=== PATIENT | male | born 1955 | race Caucasian/White ===

== ENCOUNTER 2020-09-27 12:53 | Inpatient (IN) | payer OTHER ==
[~2020-09-27] VITALS: Ht 185.4 cm; Wt 89.6 kg
[~2020-09-27 12:53] MED LIST: ASPI81CH43 GT; HCTZ; [UNRECOGNIZED DRUG - CODE] OR
[2020-09-27] MEDS ORDERED: SODIUM CHLORIDE 0.9% 1,000 ML IV ONE (13:15)
[2020-09-27] MEDS ORDERED: PANTOPRAZOLE 40 MG/10 ML VIAL INJ IV ONE (13:30)
[2020-09-27] MEDS ORDERED: OCTREOTIDE ACETATE 100 MCG in SODIUM CHL 0.9% 50 ML IV ONE (13:45)
[2020-09-27] MEDS ORDERED: PANTOPRAZOLE 40mg/50ML NS AE 50 ML IV ONE (13:45)
[2020-09-27 14:03] LABS: Basophils # (auto) 0 10 ^3/uL (0-0.2); Basophils % (auto) 0.6 % (0.0-2.0); Eosinophils # (auto) 0 10 ^3/uL (0-0.8); Eosinophils % (auto) 0.4 % (0.0-7.0); Hematocrit 29.2 % (41.0-53.0); Hemoglobin 9.9 g/dL (13.5-17.5); Lymphocytes # (auto) 1.3 10 ^3/uL (0.4-5.4); Lymphocytes % (auto) 17.1 % (10.0-50.0); Mean Corpuscular Hemoglobin 32.9 pg (28.0-32.0); Mean Corpuscular Volume 96.8 fL (80.0-100.0); Monocytes # (auto) 0.4 10 ^3/uL (0-1.3); Neutrophils % (auto) 76.9 % (37.0-80.0); Nucleated Red Blood Cells % 0.1 %; Platelet Count (auto) 178 10^3/uL (140-450); Red Blood Cells 3.02 10^6/uL (4.5-5.90); Red Cell Distribution Width 15.4 % (11.8-14.3); White Blood Cell 7.8 10^3/uL (4.4-10.8)
[2020-09-27 14:18] LABS: Albumin 2.2 g/dL (3.4-5.0); INR 1.62 (0.9-1.15); Partial Thromboplastin Time 29.3 sec (23.0-31.2); Potassium 4.2 mmol/L (3.5-5.1)
[2020-09-27 14:21] LABS: Magnesium 2.1 mg/dL (1.6-2.6)
[2020-09-27 14:22] LABS: BUN/Creatinine Ratio 29.6; Bilirubin, Total 0.6 mg/dL (0.2-1.0); Total Protein 4.4 g/dL (6.4-8.2)
[2020-09-27] MEDS: OCTREOTIDE ACETATE 500 MCG in SODIUM CHL 0.9% 99 ML IV SCH (15:19)
[2020-09-27] MEDS ORDERED: cefTRIAXone 1GM/50ML D5W 50 ML IV ONE (16:30)
[2020-09-27] MEDS ORDERED: ALUM & MAG HYDROX-SIMETH LIQ(MAALOX) 30 ML PO PRN (16:30)
[2020-09-27] MEDS ORDERED: ATORVASTATIN 20 MG TAB PO ONE (16:30)
[2020-09-27] MEDS ORDERED: LORazepam 0.5 MG TAB PO PRN (16:30)
[2020-09-27] MEDS ORDERED: FUROSEMIDE 40 MG/4 ML VIAL IV ONE (16:30)
[2020-09-27] MEDS ORDERED: NITROGLYCERIN 0.4 MG SL TAB SL PRN ×2 (16:30)
[2020-09-27] MEDS ORDERED: MORPHINE SULF INJ 2 MG/ML SYRINGE 1ML IV PRN ×3 (16:30)
[2020-09-27] MEDS ORDERED: CLINDAMYCIN 600MG IV 50 ML IV ONE (16:30)
[2020-09-27] MEDS ORDERED: SUCRALFATE 1 GM/10 ML ORAL SUSP PO ONE (16:30)
[2020-09-27] MEDS ORDERED: METOPROLOL SUCCINATE XL 50 MG TAB PO ONE (16:30)
[2020-09-27] MEDS ORDERED: ACETAMINOPHEN 325 MG TAB PO PRN (16:30)
[2020-09-27] MEDS ORDERED: LACTATED RINGER'S 2,000 ML IV ONE (16:30)
[2020-09-27] MEDS ORDERED: ONDANSETRON HCL 4 MG/2 ML VIAL IV PRN (16:30)
[2020-09-27] MEDS ORDERED: DOCUSATE SOD 100 MG CAP PO PRN (16:30)
[2020-09-27] MEDS: SODIUM CHLORIDE 0.9% 1,000 ML IV SCH ×2 (17:10→21:52)
[2020-09-27 17:12] LABS: Urine Bacteria NONE SEEN /hpf (None Seen); Urine Blood Negative /uL (Negative); Urine Mucus FEW (None Seen); Urine WBC 1 /hpf (0 - 3)
[2020-09-27 17:25] LABS: Alcohol, Urine < 3.0 mg/dL (0-10); Amphetamine Screen, Urine NEGATIVE (NEGATIVE); Barbiturate Scree,Urine NEGATIVE (NEGATIVE); Benzodiazephine Screen, Urine NEGATIVE (NEGATIVE); Cannabinoid Screen, Urine NEGATIVE (NEGATIVE); Cocaine Screen, Urine NEGATIVE (NEGATIVE); Opiate Scree,Urine NEGATIVE (NEGATIVE); Phencyclidine Screen, Urine NEGATIVE (NEGATIVE)
[2020-09-27] MEDS: SUCRALFATE 1 GM/10 ML ORAL SUSP PO SCH ×2 (17:37→21:51)
[2020-09-27] MEDS: FUROSEMIDE 20 MG/2 ML VIAL IV SCH (18:40)
[2020-09-27] MEDS: CLINDAMYCIN 600MG IV 50 ML IV SCH (18:40)
[2020-09-27] MEDS: PANTOPRAZOLE 40 MG/10 ML VIAL INJ IV SCH (21:51)
[2020-09-27] MEDS: ATORVASTATIN 20 MG TAB PO SCH (21:52)
[2020-09-27 22:00] VITALS: BP 151/85
[2020-09-28 00:41] VITALS: BP 151/85
[2020-09-28] MEDS: CLINDAMYCIN 600MG IV 50 ML IV SCH ×2 (00:47→09:52)
[2020-09-28] MEDS ORDERED: ATOR10TA52 PO (01:02)
[2020-09-28] MEDS ORDERED: LISI-716 PO (01:02)
[2020-09-28] MEDS ORDERED: DABI150C5 PO (01:02)
[2020-09-28] MEDS ORDERED: FURO20TA3 PO (01:02)
[2020-09-28] MEDS ORDERED: CARV6.2551 PO (01:02)
[2020-09-28] MEDS ORDERED: OCTREOTIDE ACETATE 500 MCG/ML VL ONE (02:30)
[2020-09-28] MEDS: OCTREOTIDE ACETATE 500 MCG in SODIUM CHL 0.9% 99 ML IV SCH ×2 (02:41→13:26)
[2020-09-28 05:00] VITALS: BP 125/73
[2020-09-28] MEDS: SUCRALFATE 1 GM/10 ML ORAL SUSP PO SCH ×4 (05:37→21:39)
[2020-09-28] MEDS: FUROSEMIDE 20 MG/2 ML VIAL IV SCH ×2 (05:37→17:29)
[2020-09-28 06:11] LABS: Basophils # (auto) 0.1 10 ^3/uL (0-0.2); Basophils % (auto) 0.9 % (0.0-2.0); Eosinophils # (auto) 0.1 10 ^3/uL (0-0.8); Eosinophils % (auto) 1.2 % (0.0-7.0); Hematocrit 24.3 % (41.0-53.0); Hemoglobin 8.5 g/dL (13.5-17.5); Lymphocytes # (auto) 1.7 10 ^3/uL (0.4-5.4); Lymphocytes % (auto) 23.1 % (10.0-50.0); Mean Corpuscular Hemoglobin 33.5 pg (28.0-32.0); Mean Corpuscular Volume 95.8 fL (80.0-100.0); Monocytes # (auto) 0.7 10 ^3/uL (0-1.3); Neutrophils # (auto) 4.7 10 ^3/uL (1.6-8.6); Neutrophils % (auto) 64.8 % (37.0-80.0); Nucleated Red Blood Cells % 0.1 %; Platelet Count (auto) 165 10^3/uL (140-450); Red Blood Cells 2.53 10^6/uL (4.5-5.90); Red Cell Distribution Width 15.1 % (11.8-14.3); White Blood Cell 7.3 10^3/uL (4.4-10.8)
[2020-09-28 06:27] LABS: INR 1.24 (0.9-1.15); Partial Thromboplastin Time 24.6 sec (23.0-31.2)
[2020-09-28 06:28] LABS: Potassium 4.8 mmol/L (3.5-5.1)
[2020-09-28 06:51] LABS: Albumin 2.4 g/dL (3.4-5.0); BUN/Creatinine Ratio 22.3; Bilirubin, Total 0.4 mg/dL (0.2-1.0); Calcium 7.6 mg/dL (8.5-10.1); Magnesium 2.2 mg/dL (1.6-2.6); Phosphorus 3.8 mg/dL (2.5-4.90); Total Protein 4.6 g/dL (6.4-8.2); Uric Acid 8.7 mg/dL (3.5-7.2)
[2020-09-28 09:00] VITALS: BP 128/66
[2020-09-28] MEDS ORDERED: cefTRIAXone 1GM/50ML D5W 50 ML IV SCH (09:00)
[2020-09-28] MEDS: PANTOPRAZOLE 40 MG/10 ML VIAL INJ IV SCH ×2 (09:18→21:39)
[2020-09-28] MEDS: LISINOPRIL 5 MG TAB PO SCH (09:19)
[2020-09-28] MEDS: METOPROLOL SUCCINATE XL 50 MG TAB PO SCH (09:55)
[2020-09-28 12:39] LABS: Hepatitis A Ab IgM Negative; Hepatitis B Core IgM Negative; Hepatitis B Surface Antigen Negative (Negative)
[2020-09-28 12:40] LABS: Hepatitis C Antibody Negative (Negative)
[2020-09-28 13:00] VITALS: BP 126/72
[2020-09-28 14:05] LABS: Hematocrit 26.2 % (41.0-53.0)
[2020-09-28 17:12] VITALS: BP 139/75
[2020-09-28] MEDS: ATORVASTATIN 20 MG TAB PO SCH (21:39)
[2020-09-28 22:00] VITALS: BP 122/67
[2020-09-29 05:00] VITALS: BP 128/85
[2020-09-29] MEDS: SUCRALFATE 1 GM/10 ML ORAL SUSP PO SCH ×4 (05:54→21:47)
[2020-09-29] MEDS: FUROSEMIDE 20 MG/2 ML VIAL IV SCH ×2 (05:54→17:17)
[2020-09-29 06:47] LABS: Basophils # (auto) 0.1 10 ^3/uL (0-0.2); Basophils % (auto) 1.1 % (0.0-2.0); Eosinophils # (auto) 0.3 10 ^3/uL (0-0.8); Eosinophils % (auto) 4.7 % (0.0-7.0); Hematocrit 23.7 % (41.0-53.0); Lymphocytes # (auto) 1.9 10 ^3/uL (0.4-5.4); Lymphocytes % (auto) 25.9 % (10.0-50.0); Mean Corpuscular Hemoglobin 32.8 pg (28.0-32.0); Mean Corpuscular Volume 96.5 fL (80.0-100.0); Monocytes # (auto) 0.7 10 ^3/uL (0-1.3); Monocytes % (auto) 10.2 % (0.0-12.0); Neutrophils # (auto) 4.2 10 ^3/uL (1.6-8.6); Neutrophils % (auto) 58.1 % (37.0-80.0); Platelet Count (auto) 180 10^3/uL (140-450); Red Blood Cells 2.46 10^6/uL (4.5-5.90); Red Cell Distribution Width 15.4 % (11.8-14.3); White Blood Cell 7.3 10^3/uL (4.4-10.8)
[2020-09-29 06:56] LABS: Calcium 7.8 mg/dL (8.5-10.1); Potassium 3.8 mmol/L (3.5-5.1)
[2020-09-29 06:58] LABS: BUN/Creatinine Ratio 16.7
[2020-09-29] MEDS: METOPROLOL SUCCINATE XL 50 MG TAB PO SCH (09:16)
[2020-09-29] MEDS: PANTOPRAZOLE 40 MG/10 ML VIAL INJ IV SCH ×2 (09:16→21:45)
[2020-09-29] MEDS: LISINOPRIL 5 MG TAB PO SCH (09:17)
[2020-09-29 09:24] VITALS: BP 138/84
[2020-09-29 13:00] VITALS: BP 129/76
[2020-09-29 16:52] VITALS: BP 145/85
[2020-09-29] MEDS: ATORVASTATIN 20 MG TAB PO SCH (21:47)
== END 2020-09-29 23:22 | disposition short-term general hospital (02) | DRG 377 ==
LOC: EDBD 12:53 → ER 12:53 → TELE 16:28 → TELE-WESTW 21:20
PROVIDERS: ADMIT Hospitalist; ATTEND Internal Medicine
DX: K92.2 Gastrointestinal hemorrhage, unspecified (principal); E43 Unspecified severe protein-calorie malnutrition; I50.43 Acute on chronic combined systolic (congestive) and diastolic (congestive) heart failure; E87.0 Hyperosmolality and hypernatremia; D68.9 Coagulation defect, unspecified; N17.9 Acute kidney failure, unspecified; J91.8 Pleural effusion in other conditions classified elsewhere; I11.0 Hypertensive heart disease with heart failure; I48.0 Paroxysmal atrial fibrillation; D50.0 Iron deficiency anemia secondary to blood loss (chronic); Z20.822 Contact with and (suspected) exposure to COVID-19; E88.09 Other disorders of plasma-protein metabolism, not elsewhere classified; E78.5 Hyperlipidemia, unspecified; I25.10 Atherosclerotic heart disease of native coronary artery without angina pectoris; I48.91 Unspecified atrial fibrillation; Z79.82 Long term (current) use of aspirin; Z82.49 Family history of ischemic heart disease and other diseases of the circulatory system; Z90.81 Acquired absence of spleen; Z95.2 Presence of prosthetic heart valve; Z68.26 Body mass index [BMI] 26.0-26.9, adult
CPT/HCPCS: 36415; 71045; 74176; 76700; 80048; 80053; 80061; 80074; 80307; 81001; 82306; 82962; 83036; 83690; 83735; 83880; 84100; 84443; 84484; 84550; 85014; 85018; 85025; 85610; 85730; 86850; 86900; 86901; 86920; 87040; 87081; 87086; 87426; 93005; 93306; 96361; 96365; 96367; C9113; G0378; J0696; J3490